=== PATIENT | male | born 1970 | race Caucasian/White ===

== ENCOUNTER 2022-10-24 01:01 | Inpatient (IN) | payer MEDICAID, OTHER ==
[~2022-10-24] VITALS: Ht 182.9 cm; Wt 95.7 kg
[2022-10-24 03:27] LABS: Basophils # (auto) 0 10 ^3/uL (0-0.2); Basophils % (auto) 0.6 % (0.0-2.0); Eosinophils # (auto) 0.1 10 ^3/uL (0-0.8); Eosinophils % (auto) 2.2 % (0.0-7.0); Hematocrit 43.2 % (41.0-53.0); Hemoglobin 14.3 g/dL (13.5-17.5); Lymphocytes # (auto) 1.3 10 ^3/uL (0.4-5.4); Lymphocytes % (auto) 20.6 % (10.0-50.0); Mean Corpuscular Hgb Conc. 33.2 g/dL (32.0-36.0); Mean Corpuscular Volume 90.4 fL (80.0-100.0); Monocytes # (auto) 0.6 10 ^3/uL (0-1.3); Monocytes % (auto) 9.5 % (0.0-12.0); Neutrophils # (auto) 4.1 10 ^3/uL (1.6-8.6); Neutrophils % (auto) 67.1 % (37.0-80.0); Nucleated Red Blood Cells % 0.1 %; Red Blood Cells 4.78 10^6/uL (4.5-5.90); White Blood Cell 6.1 10^3/uL (4.4-10.8)
[2022-10-24 03:38] LABS: Albumin 2.6 g/dL (3.4-5.0); Calcium 7.9 mg/dL (8.5-10.1); Potassium 4.3 mmol/L (3.5-5.1)
[2022-10-24 03:45] LABS: BUN/Creatinine Ratio 16.7; Bilirubin, Total 0.6 mg/dL (0.2-1.0); CRP High Sensitivity 1.18 mg/dL (< 0.3); Total Protein 6.1 g/dL (6.4-8.2)
[2022-10-24] MEDS ORDERED: VANCOMYCIN 1GM/250ML 250 ML IV ONE ×2 (06:30→11:45)
[2022-10-24] MEDS ORDERED: PIPERACILLIN-TAZOB 3.375GM 100 ML IV ONE (06:30)
[2022-10-24] MEDS ORDERED: MORPHINE SULFATE INJ 2 MG/ml SYRG IV PRN (11:30)
[2022-10-24] MEDS ORDERED: FUROSEMIDE 40 MG/4 ML VIAL IV ONE (11:30)
[2022-10-24] MEDS ORDERED: ONDANSETRON HCL 4 MG/2 ML VIAL IV PRN (11:30)
[2022-10-24] MEDS ORDERED: VANCOMYCIN PER PHARMACY 0 MG IV SCH (11:30)
[2022-10-24] MEDS ORDERED: DOCUSATE SOD 100 MG CAP PO PRN (11:30)
[2022-10-24] MEDS: PIPERACILLIN-TAZOB 3.375GM 100 ML IV SCH ×2 (18:28→18:29)
[2022-10-24] MEDS: VANCOMYCIN 1GM/250ML 250 ML IV SCH (21:18)
[2022-10-25] MEDS: PIPERACILLIN-TAZOB 3.375GM 100 ML IV SCH ×4 (01:45→12:00)
[2022-10-25 06:24] LABS: Basophils # (auto) 0.1 10 ^3/uL (0-0.2); Basophils % (auto) 1.4 % (0.0-2.0); Eosinophils # (auto) 0.1 10 ^3/uL (0-0.8); Eosinophils % (auto) 1.2 % (0.0-7.0); Hematocrit 40.1 % (41.0-53.0); Hemoglobin 13.1 g/dL (13.5-17.5); Lymphocytes % (auto) 17.5 % (10.0-50.0); Mean Corpuscular Hemoglobin 29.6 pg (28.0-32.0); Mean Corpuscular Hgb Conc. 32.6 g/dL (32.0-36.0); Monocytes # (auto) 0.6 10 ^3/uL (0-1.3); Monocytes % (auto) 10.1 % (0.0-12.0); Neutrophils % (auto) 69.8 % (37.0-80.0); Nucleated Red Blood Cells % 0.1 %; Red Blood Cells 4.41 10^6/uL (4.5-5.90); Red Cell Distribution Width 15.2 % (11.8-14.3); White Blood Cell 5.7 10^3/uL (4.4-10.8)
[2022-10-25] MEDS: VANCOMYCIN 1GM/250ML 250 ML IV SCH ×2 (06:39→18:00)
[2022-10-25 07:03] LABS: Albumin 2.3 g/dL (3.4-5.0); BUN/Creatinine Ratio 15.9; Calcium 7.7 mg/dL (8.5-10.1); Total Protein 5.5 g/dL (6.4-8.2)
[2022-10-25] MEDS: LISINOPRIL 5 MG TAB PO SCH (10:25)
[2022-10-25] MEDS: FUROSEMIDE 40 MG/4 ML VIAL IV SCH (10:25)
[2022-10-25] MEDS: ASPirin 81 mg TAB PO SCH (10:25)
[2022-10-25] MEDS: ENOXAPARIN SOD 40 MG/0.4 ML SYRINGE SC SCH (10:26)
[2022-10-25] MEDS: PANTOPRAZOLE 40 MG/10 ML VIAL INJ IV SCH (10:26)
[2022-10-25 20:01] VITALS: BP 116/69
[2022-10-25 22:00] VITALS: BP 116/81
[2022-10-26] MEDS: VANCOMYCIN 1GM/250ML 250 ML IV SCH ×2 (04:47→18:46)
[2022-10-26 05:00] VITALS: BP 122/70
[2022-10-26] MEDS: PIPERACILLIN-TAZOB 3.375GM 100 ML IV SCH ×4 (05:18→18:00)
[2022-10-26 09:00] VITALS: BP 127/76
[2022-10-26] MEDS: FUROSEMIDE 40 MG/4 ML VIAL IV SCH (09:52)
[2022-10-26] MEDS: LISINOPRIL 5 MG TAB PO SCH (09:53)
[2022-10-26] MEDS: ASPirin 81 mg TAB PO SCH (09:53)
[2022-10-26] MEDS: PANTOPRAZOLE 40 MG/10 ML VIAL INJ IV SCH (09:53)
[2022-10-26] MEDS: ENOXAPARIN SOD 40 MG/0.4 ML SYRINGE SC SCH (09:54)
[2022-10-26 13:00] VITALS: BP 110/74
[2022-10-26 17:00] VITALS: BP 111/69
[2022-10-26 22:00] VITALS: BP 111/78
[2022-10-27] MEDS: PIPERACILLIN-TAZOB 3.375GM 100 ML IV SCH ×2 (03:36)
[2022-10-27] MEDS: VANCOMYCIN 1GM/250ML 250 ML IV SCH (04:56)
[2022-10-27 05:00] VITALS: BP 134/86
[2022-10-27 09:00] VITALS: BP 104/64
[2022-10-27] MEDS: ASPirin 81 mg TAB PO SCH (09:59)
[2022-10-27] MEDS: PANTOPRAZOLE 40 MG/10 ML VIAL INJ IV SCH (09:59)
[2022-10-27] MEDS: ENOXAPARIN SOD 40 MG/0.4 ML SYRINGE SC SCH (10:00)
[2022-10-27] MEDS: LISINOPRIL 5 MG TAB PO SCH (10:09)
[2022-10-27] MEDS: FUROSEMIDE 40 MG/4 ML VIAL IV SCH (10:10)
[2022-10-27 13:00] VITALS: BP 107/63
[2022-10-27] MEDS ORDERED: CARVEDILOL 3.125 MG TAB PO ONE (14:15)
[2022-10-27 17:00] VITALS: BP 107/70
[2022-10-27] MEDS ORDERED: AMOXICILLIN/CLAVUL 875 MG TAB PO SCH (18:00)
[2022-10-27] MEDS: CARVEDILOL 3.125 MG TAB PO SCH (21:45)
[2022-10-27 22:00] VITALS: BP 99/53
[2022-10-28 05:00] VITALS: BP 116/78
[2022-10-28] MEDS ORDERED: VANCOMYCIN 1GM/250ML 250 ML IV SCH (06:00)
[2022-10-28 08:44] LABS: Basophils # (auto) 0 10 ^3/uL (0-0.2); Basophils % (auto) 0.3 % (0.0-2.0); Eosinophils # (auto) 0.2 10 ^3/uL (0-0.8); Eosinophils % (auto) 2.8 % (0.0-7.0); Hematocrit 42.5 % (41.0-53.0); Lymphocytes % (auto) 18.9 % (10.0-50.0); Mean Corpuscular Hemoglobin 29.7 pg (28.0-32.0); Monocytes # (auto) 0.4 10 ^3/uL (0-1.3); Monocytes % (auto) 7.3 % (0.0-12.0); Neutrophils # (auto) 3.8 10 ^3/uL (1.6-8.6); Neutrophils % (auto) 70.7 % (37.0-80.0); Nucleated Red Blood Cells % 0.1 %; Red Blood Cells 4.72 10^6/uL (4.5-5.90); Red Cell Distribution Width 15.3 % (11.8-14.3); White Blood Cell 5.4 10^3/uL (4.4-10.8)
[2022-10-28 08:45] VITALS: BP 97/57
[2022-10-28 09:01] LABS: Albumin 2.3 g/dL (3.4-5.0); Calcium 7.9 mg/dL (8.5-10.1); Potassium 4.5 mmol/L (3.5-5.1)
[2022-10-28 09:07] LABS: BUN/Creatinine Ratio 16.1; Bilirubin, Total 0.8 mg/dL (0.2-1.0); Total Protein 5.4 g/dL (6.4-8.2)
[2022-10-28] MEDS ORDERED: FUROSEMIDE 40 MG TAB PO SCH (10:00)
[2022-10-28] MEDS: LISINOPRIL 5 MG TAB PO SCH (10:00)
[2022-10-28] MEDS: ENOXAPARIN SOD 40 MG/0.4 ML SYRINGE SC SCH (10:23)
[2022-10-28] MEDS: ASPirin 81 mg TAB PO SCH (10:23)
[2022-10-28] MEDS: CARVEDILOL 3.125 MG TAB PO SCH ×2 (10:25→22:19)
[2022-10-28] MEDS: levoFLOXacin 750MG 150 ML IV SCH (10:27)
[2022-10-28 13:00] VITALS: BP 111/70
[2022-10-28] MEDS ORDERED: DEXTROSE (50%) 50ML SYRG IV PRN (13:00)
[2022-10-28 16:35] LABS: Urine WBC None Seen /hpf (0 - 3)
[2022-10-28 16:49] LABS: Urine Bacteria NONE SEEN /hpf (None Seen); Urine Blood Negative /uL (Negative); Urine Specific Gravity 1.008 (1.001-1.035)
[2022-10-28 16:59] LABS: Alcohol, Urine < 3.0 mg/dL (0-10); Amphetamine Screen, Urine NEGATIVE (NEGATIVE); Barbiturate Scree,Urine NEGATIVE (NEGATIVE); Benzodiazephine Screen, Urine NEGATIVE (NEGATIVE); Cannabinoid Screen, Urine NEGATIVE (NEGATIVE); Cocaine Screen, Urine NEGATIVE (NEGATIVE); Opiate Scree,Urine NEGATIVE (NEGATIVE); Phencyclidine Screen, Urine NEGATIVE (NEGATIVE)
[2022-10-28 17:00] VITALS: BP 95/57
[2022-10-28] MEDS: InsuLIN REG 1unit/0.01ml Soln (100units/ml) SC SCH ×2 (17:00→22:00)
[2022-10-28] MEDS: ACCU-CHEK COMFORT CURVE STRIP VI SCH ×2 (17:00→22:12)
[2022-10-28] MEDS: FUROSEMIDE 20 MG/2 ML VIAL IV SCH (18:00)
[2022-10-28] MEDS: AMOXICILLIN/CLAVUL 875 MG TAB PO SCH (18:57)
[2022-10-28 22:00] VITALS: BP 106/63
[2022-10-28] MEDS: DOBUTamine 1000MCG/ML 250 ML IV SCH (22:16)
[2022-10-29] MEDS: DOBUTamine 1000MCG/ML 250 ML IV SCH (04:11)
[2022-10-29 05:00] VITALS: BP 106/60
[2022-10-29] MEDS: FUROSEMIDE 20 MG/2 ML VIAL IV SCH ×2 (06:00→18:00)
[2022-10-29] MEDS: AMOXICILLIN/CLAVUL 875 MG TAB PO SCH ×2 (06:07→18:58)
[2022-10-29] MEDS: ACCU-CHEK COMFORT CURVE STRIP VI SCH ×3 (06:08→18:21)
[2022-10-29] MEDS: InsuLIN REG 1unit/0.01ml Soln (100units/ml) SC SCH ×4 (06:14→22:00)
[2022-10-29 06:44] LABS: BUN/Creatinine Ratio 21.7; Calcium 8.3 mg/dL (8.5-10.1); Potassium 4.2 mmol/L (3.5-5.1)
[2022-10-29 08:12] LABS: INR 1.18 (0.9-1.15); Partial Thromboplastin Time 28.9 sec (24.6-33.4)
[2022-10-29 09:00] VITALS: BP 104/67
[2022-10-29] MEDS: CARVEDILOL 3.125 MG TAB PO SCH ×2 (10:24→22:00)
[2022-10-29] MEDS: levoFLOXacin 750MG 150 ML IV SCH (11:14)
[2022-10-29] MEDS: LISINOPRIL 5 MG TAB PO SCH (12:25)
[2022-10-29 12:48] VITALS: BP 107/70
[2022-10-29 17:04] VITALS: BP 108/68
[2022-10-29 20:00] VITALS: BP 104/61
[2022-10-29 22:00] VITALS: BP 104/61
[2022-10-30] MEDS: ACCU-CHEK COMFORT CURVE STRIP VI SCH ×4 (01:34→21:39)
[2022-10-30 05:00] VITALS: BP 111/70
[2022-10-30] MEDS: InsuLIN REG 1unit/0.01ml Soln (100units/ml) SC SCH ×3 (06:37→22:00)
[2022-10-30] MEDS: FUROSEMIDE 20 MG/2 ML VIAL IV SCH ×3 (06:55→16:46)
[2022-10-30] MEDS: EMPAGLIFLOZIN 10 MG TAB PO SCH (06:55)
[2022-10-30] MEDS: AMOXICILLIN/CLAVUL 875 MG TAB PO SCH ×2 (06:55→18:03)
[2022-10-30] MEDS: CARVEDILOL 3.125 MG TAB PO SCH ×2 (10:00→21:40)
[2022-10-30] MEDS: LISINOPRIL 5 MG TAB PO SCH (10:00)
[2022-10-30 10:41] LABS: Albumin 2.8 g/dL (3.4-5.0); Calcium 8.4 mg/dL (8.5-10.1); Potassium 4.3 mmol/L (3.5-5.1)
[2022-10-30 10:46] LABS: BUN/Creatinine Ratio 20.2; Bilirubin, Total 0.6 mg/dL (0.2-1.0)
[2022-10-30 10:53] LABS: Basophils # (auto) 0.1 10 ^3/uL (0-0.2); Basophils % (auto) 1.4 % (0.0-2.0); Eosinophils # (auto) 0.2 10 ^3/uL (0-0.8); Eosinophils % (auto) 2.7 % (0.0-7.0); Hemoglobin 15.3 g/dL (13.5-17.5); Lymphocytes # (auto) 1.2 10 ^3/uL (0.4-5.4); Mean Corpuscular Hemoglobin 29.6 pg (28.0-32.0); Mean Corpuscular Hgb Conc. 33.2 g/dL (32.0-36.0); Mean Corpuscular Volume 89.1 fL (80.0-100.0); Monocytes # (auto) 0.5 10 ^3/uL (0-1.3); Monocytes % (auto) 8.3 % (0.0-12.0); Neutrophils % (auto) 67.6 % (37.0-80.0); Nucleated Red Blood Cells % 0.3 %; Red Blood Cells 5.16 10^6/uL (4.5-5.90); Red Cell Distribution Width 15.3 % (11.8-14.3)
[2022-10-30] MEDS: levoFLOXacin 750MG 150 ML IV SCH (10:56)
[2022-10-30] MEDS: ENOXAPARIN SOD 40 MG/0.4 ML SYRINGE SC SCH (10:57)
[2022-10-30 13:00] VITALS: BP 107/69
[2022-10-30 17:00] VITALS: BP 126/88
[2022-10-30] MEDS: Juven Orange Powder PACKET 27.5gm PO SCH (18:04)
[2022-10-30 22:00] VITALS: BP 107/69
[2022-10-31 05:00] VITALS: BP 104/65
[2022-10-31] MEDS: FUROSEMIDE 20 MG/2 ML VIAL IV SCH (06:00)
[2022-10-31] MEDS: AMOXICILLIN/CLAVUL 875 MG TAB PO SCH (06:59)
[2022-10-31] MEDS: EMPAGLIFLOZIN 10 MG TAB PO SCH (06:59)
[2022-10-31] MEDS: ACCU-CHEK COMFORT CURVE STRIP VI SCH ×2 (07:00→11:39)
[2022-10-31] MEDS: InsuLIN REG 1unit/0.01ml Soln (100units/ml) SC SCH ×2 (07:00→11:30)
[2022-10-31] MEDS: Juven Orange Powder PACKET 27.5gm PO SCH (08:10)
[2022-10-31 09:00] VITALS: BP 104/66
[2022-10-31] MEDS: CARVEDILOL 3.125 MG TAB PO SCH (10:00)
[2022-10-31] MEDS ORDERED: levoFLOXacin 250 MG TAB PO SCH (10:00)
[2022-10-31] MEDS: LISINOPRIL 5 MG TAB PO SCH (10:00)
[2022-10-31] MEDS: ENOXAPARIN SOD 40 MG/0.4 ML SYRINGE SC SCH (10:14)
[2022-10-31 10:47] LABS: Basophils # (auto) 0.1 10 ^3/uL (0-0.2); Basophils % (auto) 0.9 % (0.0-2.0); Eosinophils # (auto) 0.2 10 ^3/uL (0-0.8); Eosinophils % (auto) 2.5 % (0.0-7.0); Hematocrit 47.5 % (41.0-53.0); Hemoglobin 15.7 g/dL (13.5-17.5); Lymphocytes # (auto) 1.3 10 ^3/uL (0.4-5.4); Lymphocytes % (auto) 21.4 % (10.0-50.0); Mean Corpuscular Hemoglobin 29.9 pg (28.0-32.0); Mean Corpuscular Hgb Conc. 33.1 g/dL (32.0-36.0); Mean Corpuscular Volume 90.3 fL (80.0-100.0); Monocytes # (auto) 0.5 10 ^3/uL (0-1.3); Monocytes % (auto) 8.6 % (0.0-12.0); Neutrophils # (auto) 4.2 10 ^3/uL (1.6-8.6); Neutrophils % (auto) 66.6 % (37.0-80.0); Nucleated Red Blood Cells % 0.1 %; Red Blood Cells 5.25 10^6/uL (4.5-5.90); Red Cell Distribution Width 15.1 % (11.8-14.3); White Blood Cell 6.3 10^3/uL (4.4-10.8)
[2022-10-31 11:03] LABS: Albumin 2.9 g/dL (3.4-5.0); Calcium 8.7 mg/dL (8.5-10.1); Potassium 4.1 mmol/L (3.5-5.1)
[2022-10-31 11:07] LABS: Bilirubin, Total 0.5 mg/dL (0.2-1.0); Total Protein 7.2 g/dL (6.4-8.2)
[2022-10-31 13:00] VITALS: BP 102/66
[2022-10-31] MEDS ORDERED: EMPA1TAB PO (13:25)
[2022-10-31] MEDS ORDERED: FURO1TAB33 GT (13:25)
[2022-10-31] MEDS ORDERED: LISI-275 PO (13:25)
[2022-10-31] MEDS ORDERED: CAR3125T PO (13:25)
[2022-10-31 14:20] VITALS: BP 126/61
== END 2022-10-31 16:20 | disposition home or self-care (01) | DRG 383 ==
LOC: ER 01:01 → OVERFLOW 11:23 → WEST WING 10-25 19:27 → TELE-WESTW 10-28 14:28
PROVIDERS: ADMIT Nurse Practitioner Family; ATTEND Student in an Organized Health Care Education/Training Program
DX: L03.116 Cellulitis of left lower limb (principal); I31.39 Other pericardial effusion (noninflammatory); I50.43 Acute on chronic combined systolic (congestive) and diastolic (congestive) heart failure; E44.1 Mild protein-calorie malnutrition; I42.7 Cardiomyopathy due to drug and external agent; E11.22 Type 2 diabetes mellitus with diabetic chronic kidney disease; E11.622 Type 2 diabetes mellitus with other skin ulcer; L97.919 Non-pressure chronic ulcer of unspecified part of right lower leg with unspecified severity; Z20.822 Contact with and (suspected) exposure to COVID-19; F15.10 Other stimulant abuse, uncomplicated; F17.210 Nicotine dependence, cigarettes, uncomplicated; F32.A Depression, unspecified; L03.115 Cellulitis of right lower limb; L97.929 Non-pressure chronic ulcer of unspecified part of left lower leg with unspecified severity; E66.9 Obesity, unspecified; N18.31 Chronic kidney disease, stage 3a; Z68.36 Body mass index [BMI] 36.0-36.9, adult; Z79.899 Other long term (current) drug therapy; Z91.14 Patient's other noncompliance with medication regimen; I87.8 Other specified disorders of veins
CPT/HCPCS: 36415; 71045; 73590; 76604; 76705; 80048; 80053; 80061; 80202; 80307; 81001; 82565; 82962; 83036; 83880; 84443; 84484; 85025; 85610; 85652; 85730; 86141; 87040; 87077; 87186; 87205; 87426; 93306; 93970; 96365; 96366; 96368; 96375; 97163; C9113; G0378; J1956; J2543

== ENCOUNTER 2022-11-11 09:01 | Inpatient (IN) | payer MEDICAID, OTHER ==
[~2022-11-11] VITALS: Ht 172.7 cm; Wt 89.3 kg
[~2022-11-11 09:01] MED LIST: CAR3125T PO; EMPA1TAB PO; FURO1TAB33 GT; LISI-275 PO
[2022-11-11 09:29] LABS: Basophils # (auto) 0.1 10 ^3/uL (0-0.2); Eosinophils # (auto) 0.1 10 ^3/uL (0-0.8); Eosinophils % (auto) 1.1 % (0.0-7.0); Hematocrit 41.3 % (41.0-53.0); Hemoglobin 13.7 g/dL (13.5-17.5); Lymphocytes # (auto) 1.4 10 ^3/uL (0.4-5.4); Lymphocytes % (auto) 19.2 % (10.0-50.0); Mean Corpuscular Hemoglobin 29.7 pg (28.0-32.0); Mean Corpuscular Hgb Conc. 33.2 g/dL (32.0-36.0); Mean Corpuscular Volume 89.4 fL (80.0-100.0); Monocytes # (auto) 0.6 10 ^3/uL (0-1.3); Monocytes % (auto) 8.7 % (0.0-12.0); Nucleated Red Blood Cells % 0.2 %; Red Blood Cells 4.62 10^6/uL (4.5-5.90); Red Cell Distribution Width 15.1 % (11.8-14.3); White Blood Cell 7.2 10^3/uL (4.4-10.8)
[2022-11-11] MEDS ORDERED: SODIUM CHLORIDE 0.9% 1,000 ML IV ONE (09:30)
[2022-11-11 09:40] LABS: Potassium 3.9 mmol/L (3.5-5.1)
[2022-11-11] MEDS ORDERED: ASPirin 325 MG TAB PO ONE (09:45)
[2022-11-11] MEDS ORDERED: FUROSEMIDE 40 MG/4 ML VIAL IV ONE (09:45)
[2022-11-11 09:52] LABS: INR 1.13 (0.9-1.15); Partial Thromboplastin Time 28.4 sec (24.6-33.4)
[2022-11-11 09:56] LABS: Albumin 3.1 g/dL (3.4-5.0); BUN/Creatinine Ratio 14.2; Bilirubin, Total 0.5 mg/dL (0.2-1.0); Calcium 8.4 mg/dL (8.5-10.1); Total Protein 6.7 g/dL (6.4-8.2)
[2022-11-11] MEDS ORDERED: ENOXAPARIN SOD 100 MG/1 ML SYRINGE SC ONE (13:15)
[2022-11-11] MEDS ORDERED: NITROGLYCERIN 0.4 MG SL TAB SL PRN (15:00)
[2022-11-11] MEDS ORDERED: MORPHINE SULFATE INJ 2 MG/ml SYRG IV PRN (15:00)
[2022-11-11] MEDS ORDERED: SODIUM CHLORIDE 0.9% 1,000 ML IV SCH (15:15)
[2022-11-11] MEDS ORDERED: DEXTROSE (50%) 50ML SYRG IV PRN (15:15)
[2022-11-11] MEDS ORDERED: FUROSEMIDE 20 MG/2 ML VIAL IV ONE (15:15)
[2022-11-11] MEDS: InsuLIN REG 1unit/0.01ml Soln (100units/ml) SC SCH ×2 (17:30→21:43)
[2022-11-11] MEDS: ACCU-CHEK COMFORT CURVE STRIP VI SCH ×2 (17:30→21:31)
[2022-11-11 20:17] LABS: Urine Bacteria NONE SEEN /hpf (None Seen); Urine Blood Negative /uL (Negative); Urine WBC <1 /hpf (0 - 3)
[2022-11-11] MEDS: CARVEDILOL 3.125 MG TAB PO SCH (21:33)
[2022-11-12 06:26] LABS: Basophils # (auto) 0.1 10 ^3/uL (0-0.2); Basophils % (auto) 1.2 % (0.0-2.0); Eosinophils # (auto) 0.2 10 ^3/uL (0-0.8); Hematocrit 41.5 % (41.0-53.0); Hemoglobin 13.7 g/dL (13.5-17.5); Lymphocytes # (auto) 1.5 10 ^3/uL (0.4-5.4); Lymphocytes % (auto) 24.3 % (10.0-50.0); Mean Corpuscular Hemoglobin 29.5 pg (28.0-32.0); Mean Corpuscular Volume 89.3 fL (80.0-100.0); Monocytes # (auto) 0.4 10 ^3/uL (0-1.3); Monocytes % (auto) 6.2 % (0.0-12.0); Neutrophils % (auto) 64.3 % (37.0-80.0); Nucleated Red Blood Cells % 0.1 %; Red Blood Cells 4.65 10^6/uL (4.5-5.90); Red Cell Distribution Width 15.6 % (11.8-14.3); White Blood Cell 6.2 10^3/uL (4.4-10.8)
[2022-11-12 06:32] LABS: Potassium 4.3 mmol/L (3.5-5.1)
[2022-11-12 06:38] LABS: Albumin 2.6 g/dL (3.4-5.0); BUN/Creatinine Ratio 14.3; Bilirubin, Total 0.7 mg/dL (0.2-1.0); Calcium 8.5 mg/dL (8.5-10.1); Total Protein 6.3 g/dL (6.4-8.2)
[2022-11-12] MEDS: InsuLIN REG 1unit/0.01ml Soln (100units/ml) SC SCH ×4 (07:00→22:00)
[2022-11-12] MEDS: ACCU-CHEK COMFORT CURVE STRIP VI SCH ×4 (07:27→22:40)
[2022-11-12] MEDS: FUROSEMIDE 20 MG/2 ML VIAL IV SCH (09:41)
[2022-11-12] MEDS: CARVEDILOL 3.125 MG TAB PO SCH ×2 (09:42→22:00)
[2022-11-12] MEDS: LISINOPRIL 5 MG TAB PO SCH (09:43)
[2022-11-12] MEDS: NICOTINE 7MG/24HR TOPICAL PATCH TD SCH (09:43)
[2022-11-12] MEDS: ENOXAPARIN SOD 40 MG/0.4 ML SYRINGE SC SCH (09:43)
[2022-11-12 13:10] VITALS: BP 100/61
[2022-11-12 17:27] VITALS: BP 104/68
[2022-11-12 22:00] VITALS: BP 96/67
[2022-11-13 05:00] VITALS: BP 108/72
[2022-11-13] MEDS: ACCU-CHEK COMFORT CURVE STRIP VI SCH ×4 (06:15→22:09)
[2022-11-13] MEDS: InsuLIN REG 1unit/0.01ml Soln (100units/ml) SC SCH ×4 (06:16→22:00)
[2022-11-13 08:00] VITALS: BP 96/67
[2022-11-13 09:00] VITALS: BP 107/76
[2022-11-13] MEDS: LISINOPRIL 5 MG TAB PO SCH (10:00)
[2022-11-13] MEDS: CARVEDILOL 3.125 MG TAB PO SCH ×2 (10:00→22:08)
[2022-11-13] MEDS: FUROSEMIDE 20 MG/2 ML VIAL IV SCH (10:33)
[2022-11-13] MEDS: ENOXAPARIN SOD 40 MG/0.4 ML SYRINGE SC SCH (10:35)
[2022-11-13] MEDS: NICOTINE 7MG/24HR TOPICAL PATCH TD SCH (10:35)
[2022-11-13 13:00] VITALS: BP 114/79
[2022-11-13 17:00] VITALS: BP 107/68
[2022-11-13 22:00] VITALS: BP 107/68
[2022-11-13] MEDS: BACITRACIN TOP OINT 1 UD PKG TOP SCH (22:10)
[2022-11-14 04:56] VITALS: BP 104/75
[2022-11-14] MEDS: InsuLIN REG 1unit/0.01ml Soln (100units/ml) SC SCH ×4 (06:38→22:00)
[2022-11-14] MEDS: ACCU-CHEK COMFORT CURVE STRIP VI SCH ×4 (06:38→22:47)
[2022-11-14 09:00] VITALS: BP 118/83
[2022-11-14] MEDS: FUROSEMIDE 20 MG/2 ML VIAL IV SCH (09:54)
[2022-11-14] MEDS: ENOXAPARIN SOD 40 MG/0.4 ML SYRINGE SC SCH (09:55)
[2022-11-14] MEDS: NICOTINE 7MG/24HR TOPICAL PATCH TD SCH (09:56)
[2022-11-14] MEDS: BACITRACIN TOP OINT 1 UD PKG TOP SCH ×2 (09:56→22:46)
[2022-11-14] MEDS: CARVEDILOL 3.125 MG TAB PO SCH ×2 (09:57→22:00)
[2022-11-14] MEDS: LISINOPRIL 5 MG TAB PO SCH (09:57)
[2022-11-14 13:00] VITALS: BP 109/75
[2022-11-14 16:40] VITALS: BP 121/84
[2022-11-14] MEDS: Juven Fruit Punch Powder PACKET 28.8gm PO SCH (18:12)
[2022-11-14 20:00] VITALS: BP 99/55
[2022-11-15 05:00] VITALS: BP 128/87
[2022-11-15] MEDS: InsuLIN REG 1unit/0.01ml Soln (100units/ml) SC SCH ×5 (06:20→22:00)
[2022-11-15] MEDS: ACCU-CHEK COMFORT CURVE STRIP VI SCH ×4 (06:20→22:12)
[2022-11-15 09:00] VITALS: BP_SYST 110; BP_SYST 125; BP_DIAS 69; BP_DIAS 74
[2022-11-15] MEDS: NICOTINE 7MG/24HR TOPICAL PATCH TD SCH (10:00)
[2022-11-15 10:17] LABS: Basophils # (auto) 0.1 10 ^3/uL (0-0.2); Basophils % (auto) 0.9 % (0.0-2.0); Eosinophils # (auto) 0.2 10 ^3/uL (0-0.8); Eosinophils % (auto) 3.6 % (0.0-7.0); Hematocrit 41.5 % (41.0-53.0); Hemoglobin 14.1 g/dL (13.5-17.5); Lymphocytes # (auto) 1.4 10 ^3/uL (0.4-5.4); Lymphocytes % (auto) 24.6 % (10.0-50.0); Mean Corpuscular Hemoglobin 30.2 pg (28.0-32.0); Mean Corpuscular Hgb Conc. 34.1 g/dL (32.0-36.0); Mean Corpuscular Volume 88.6 fL (80.0-100.0); Monocytes # (auto) 0.3 10 ^3/uL (0-1.3); Monocytes % (auto) 5.6 % (0.0-12.0); Neutrophils # (auto) 3.8 10 ^3/uL (1.6-8.6); Neutrophils % (auto) 65.3 % (37.0-80.0); Nucleated Red Blood Cells % 0.2 %; Red Blood Cells 4.68 10^6/uL (4.5-5.90); Red Cell Distribution Width 15.5 % (11.8-14.3); White Blood Cell 5.8 10^3/uL (4.4-10.8)
[2022-11-15] MEDS: ENOXAPARIN SOD 40 MG/0.4 ML SYRINGE SC SCH (10:17)
[2022-11-15] MEDS: Juven Fruit Punch Powder PACKET 28.8gm PO SCH ×2 (10:18→18:08)
[2022-11-15] MEDS: FUROSEMIDE 20 MG/2 ML VIAL IV SCH (10:20)
[2022-11-15] MEDS: BACITRACIN TOP OINT 1 UD PKG TOP SCH ×2 (10:20→22:00)
[2022-11-15] MEDS: CARVEDILOL 3.125 MG TAB PO SCH ×2 (10:20→22:00)
[2022-11-15] MEDS: LISINOPRIL 5 MG TAB PO SCH (10:21)
[2022-11-15 10:36] LABS: BUN/Creatinine Ratio 27.1; Magnesium 2.3 mg/dL (1.6-2.6); Potassium 4.5 mmol/L (3.5-5.1)
[2022-11-15 13:00] VITALS: BP 104/66
[2022-11-15 17:00] VITALS: BP 103/59
[2022-11-15 22:00] VITALS: BP 108/71
[2022-11-16 05:00] VITALS: BP 142/75
[2022-11-16] MEDS: ACCU-CHEK COMFORT CURVE STRIP VI SCH ×4 (06:10→22:10)
[2022-11-16] MEDS: InsuLIN REG 1unit/0.01ml Soln (100units/ml) SC SCH ×4 (06:11→22:00)
[2022-11-16 09:00] VITALS: BP 101/70
[2022-11-16] MEDS: NICOTINE 7MG/24HR TOPICAL PATCH TD SCH (10:00)
[2022-11-16] MEDS: CARVEDILOL 3.125 MG TAB PO SCH ×2 (11:07→22:03)
[2022-11-16] MEDS: ENOXAPARIN SOD 40 MG/0.4 ML SYRINGE SC SCH (11:08)
[2022-11-16] MEDS: LISINOPRIL 5 MG TAB PO SCH (11:10)
[2022-11-16] MEDS: BACITRACIN TOP OINT 1 UD PKG TOP SCH ×2 (11:11→22:04)
[2022-11-16] MEDS: FUROSEMIDE 20 MG/2 ML VIAL IV SCH (11:11)
[2022-11-16] MEDS: Juven Fruit Punch Powder PACKET 28.8gm PO SCH ×2 (11:13→18:57)
[2022-11-16 13:00] VITALS: BP 103/74
[2022-11-16 17:00] VITALS: BP 100/64
[2022-11-16 22:00] VITALS: BP 106/72
[2022-11-17 05:00] VITALS: BP 117/69
[2022-11-17] MEDS: ACCU-CHEK COMFORT CURVE STRIP VI SCH ×4 (06:15→22:51)
[2022-11-17] MEDS: InsuLIN REG 1unit/0.01ml Soln (100units/ml) SC SCH ×4 (06:15→22:54)
[2022-11-17 09:23] VITALS: BP 120/76
[2022-11-17] MEDS: NICOTINE 7MG/24HR TOPICAL PATCH TD SCH (10:00)
[2022-11-17] MEDS: ENOXAPARIN SOD 40 MG/0.4 ML SYRINGE SC SCH (10:03)
[2022-11-17] MEDS: BACITRACIN TOP OINT 1 UD PKG TOP SCH ×2 (10:04→22:51)
[2022-11-17] MEDS: FUROSEMIDE 20 MG/2 ML VIAL IV SCH (10:05)
[2022-11-17] MEDS: CARVEDILOL 3.125 MG TAB PO SCH ×2 (10:05→22:50)
[2022-11-17] MEDS: LISINOPRIL 5 MG TAB PO SCH (10:08)
[2022-11-17] MEDS: Juven Fruit Punch Powder PACKET 28.8gm PO SCH ×2 (10:08→18:12)
[2022-11-17] MEDS ORDERED: LISI-275 PO ×3 (11:11→12:16)
[2022-11-17] MEDS ORDERED: FURO1TAB33 GT ×2 (11:11)
[2022-11-17] MEDS ORDERED: CAR3125T PO ×3 (11:11→12:16)
[2022-11-17] MEDS ORDERED: EMPA1TAB PO ×2 (11:11)
[2022-11-17] MEDS ORDERED: FURO1TAB31 PO (12:16)
[2022-11-17] MEDS ORDERED: GLIM4TAB PO (12:17)
[2022-11-17 12:40] VITALS: BP 92/56
[2022-11-17 13:18] VITALS: BP 120/76
[2022-11-17 16:40] VITALS: BP 99/58
[2022-11-17 22:00] VITALS: BP_SYST 115; BP_SYST 97; BP_DIAS 55; BP_DIAS 75
[2022-11-18 05:00] VITALS: BP 117/76
[2022-11-18] MEDS: InsuLIN REG 1unit/0.01ml Soln (100units/ml) SC SCH ×2 (06:02→11:32)
[2022-11-18] MEDS: ACCU-CHEK COMFORT CURVE STRIP VI SCH ×2 (06:02→11:30)
[2022-11-18 09:07] VITALS: BP 104/71
[2022-11-18] MEDS: NICOTINE 7MG/24HR TOPICAL PATCH TD SCH (10:00)
[2022-11-18] MEDS: ENOXAPARIN SOD 40 MG/0.4 ML SYRINGE SC SCH (10:57)
[2022-11-18] MEDS: CARVEDILOL 3.125 MG TAB PO SCH (10:58)
[2022-11-18] MEDS: LISINOPRIL 5 MG TAB PO SCH (10:59)
[2022-11-18] MEDS: FUROSEMIDE 20 MG/2 ML VIAL IV SCH (11:01)
[2022-11-18] MEDS: BACITRACIN TOP OINT 1 UD PKG TOP SCH (11:01)
[2022-11-18] MEDS: Juven Fruit Punch Powder PACKET 28.8gm PO SCH (11:02)
[2022-11-18 12:33] VITALS: BP 110/70
== END 2022-11-18 16:00 | disposition home or self-care (01) | DRG 194 ==
LOC: ER 09:01 → TELE 15:06 → TELE-E-ADS 11-12 13:10 → TELE-WESTW 11-12 17:49
PROVIDERS: ADMIT Registered Nurse; ATTEND Internal Medicine
DX: I11.0 Hypertensive heart disease with heart failure (principal); E46 Unspecified protein-calorie malnutrition; I47.20 Ventricular tachycardia, unspecified; I50.23 Acute on chronic systolic (congestive) heart failure; E11.9 Type 2 diabetes mellitus without complications; I87.8 Other specified disorders of veins; F17.210 Nicotine dependence, cigarettes, uncomplicated; Z71.6 Tobacco abuse counseling; Z59.00 Homelessness unspecified; Z68.28 Body mass index [BMI] 28.0-28.9, adult; Z91.018 Allergy to other foods
CPT/HCPCS: 36415; 71045; 71275; 80048; 80053; 81001; 82962; 83735; 83880; 84484; 85025; 85379; 85610; 85730; 87081; 87426; 93005; 93970; 96372; 96374; 99291; G0378; J1815

== ENCOUNTER 2022-11-19 01:30 | Inpatient (IN) | payer OTHER ==
[~2022-11-19] VITALS: Ht 182.9 cm; Wt 86.6 kg
[2022-11-19 01:16] VITALS: BP 97/59
[~2022-11-19 01:30] MED LIST changes: -EMPA1TAB PO; +FURO1TAB31 PO; -FURO1TAB33 GT; +GLIM4TAB PO
[2022-11-19 07:22] LABS: Basophils # (auto) 0.1 10 ^3/uL (0-0.2); Basophils % (auto) 1.3 % (0.0-2.0); Eosinophils # (auto) 0.2 10 ^3/uL (0-0.8); Eosinophils % (auto) 2.6 % (0.0-7.0); Hemoglobin 14.6 g/dL (13.5-17.5); Lymphocytes # (auto) 1.5 10 ^3/uL (0.4-5.4); Lymphocytes % (auto) 18.4 % (10.0-50.0); Mean Corpuscular Hemoglobin 31.1 pg (28.0-32.0); Mean Corpuscular Hgb Conc. 35.6 g/dL (32.0-36.0); Mean Corpuscular Volume 87.5 fL (80.0-100.0); Monocytes # (auto) 0.8 10 ^3/uL (0-1.3); Monocytes % (auto) 9.8 % (0.0-12.0); Neutrophils # (auto) 5.5 10 ^3/uL (1.6-8.6); Neutrophils % (auto) 67.9 % (37.0-80.0); Nucleated Red Blood Cells % 0.2 %; Red Blood Cells 4.68 10^6/uL (4.5-5.90); Red Cell Distribution Width 15.4 % (11.8-14.3); White Blood Cell 8.1 10^3/uL (4.4-10.8)
[2022-11-19 07:42] LABS: Albumin 3.1 g/dL (3.4-5.0); BUN/Creatinine Ratio 36.4; Calcium 8.7 mg/dL (8.5-10.1); Potassium 4.2 mmol/L (3.5-5.1)
[2022-11-19 07:45] LABS: Bilirubin, Total 0.5 mg/dL (0.2-1.0); Total Protein 6.5 g/dL (6.4-8.2)
[2022-11-19] MEDS ORDERED: OXYCODONE W/ ACETAMINOPHEN 5/325MG TABLET PO ONE (10:30)
[2022-11-19 11:40] LABS: Urine Bacteria NONE SEEN /hpf (None Seen); Urine Blood Negative /uL (Negative); Urine Specific Gravity 1.024 (1.001-1.035); Urine WBC <1 /hpf (0 - 3)
[2022-11-19] MEDS ORDERED: DOCUSATE SOD 100 MG CAP PO PRN (12:30)
[2022-11-19] MEDS ORDERED: MORPHINE SULFATE INJ 2 MG/ml SYRG IV PRN (12:30)
[2022-11-19] MEDS ORDERED: ONDANSETRON HCL 4 MG/2 ML VIAL IV PRN (12:30)
[2022-11-19] MEDS ORDERED: ACETAMINOPHEN 325 MG TAB PO PRN (12:30)
[2022-11-19] MEDS: HYDROcodone-ACET 5/325MG TAB PO PRN (20:31)
[2022-11-19] MEDS: FUROSEMIDE 40 MG/4 ML VIAL IV SCH (22:10)
[2022-11-20] MEDS: HYDROcodone-ACET 5/325MG TAB PO PRN ×2 (01:39→09:30)
[2022-11-20 02:00] VITALS: BP 97/59
[2022-11-20 05:00] VITALS: BP 91/53
[2022-11-20 07:18] LABS: Basophils # (auto) 0 10 ^3/uL (0-0.2); Basophils % (auto) 0.7 % (0.0-2.0); Eosinophils # (auto) 0.4 10 ^3/uL (0-0.8); Eosinophils % (auto) 6.7 % (0.0-7.0); Hematocrit 41.5 % (41.0-53.0); Hemoglobin 14.3 g/dL (13.5-17.5); Lymphocytes # (auto) 1.8 10 ^3/uL (0.4-5.4); Lymphocytes % (auto) 34.3 % (10.0-50.0); Mean Corpuscular Hemoglobin 30.3 pg (28.0-32.0); Mean Corpuscular Hgb Conc. 34.5 g/dL (32.0-36.0); Mean Corpuscular Volume 87.9 fL (80.0-100.0); Monocytes # (auto) 0.6 10 ^3/uL (0-1.3); Monocytes % (auto) 10.6 % (0.0-12.0); Neutrophils # (auto) 2.5 10 ^3/uL (1.6-8.6); Neutrophils % (auto) 47.7 % (37.0-80.0); Nucleated Red Blood Cells % 0.2 %; Red Blood Cells 4.72 10^6/uL (4.5-5.90); Red Cell Distribution Width 15.9 % (11.8-14.3); White Blood Cell 5.2 10^3/uL (4.4-10.8)
[2022-11-20 07:41] LABS: Albumin 2.9 g/dL (3.4-5.0); Bilirubin, Total 0.7 mg/dL (0.2-1.0); Calcium 8.2 mg/dL (8.5-10.1); Potassium 4.6 mmol/L (3.5-5.1); Total Protein 6.5 g/dL (6.4-8.2)
[2022-11-20 09:00] VITALS: BP 105/67
[2022-11-20] MEDS: FUROSEMIDE 40 MG/4 ML VIAL IV SCH ×2 (09:29→21:23)
[2022-11-20] MEDS: ENOXAPARIN SOD 40 MG/0.4 ML SYRINGE SC SCH (09:29)
[2022-11-20] MEDS ORDERED: DEXTROSE (50%) 50ML SYRG IV PRN (12:00)
[2022-11-20 14:00] VITALS: BP 111/64
[2022-11-20] MEDS: HYDROcodone-ACET 10/325MG TAB PO PRN ×2 (15:36→21:20)
[2022-11-20 17:00] VITALS: BP 110/60
[2022-11-20] MEDS: InsuLIN REG 1unit/0.01ml Soln (100units/ml) SC SCH ×2 (17:00→21:24)
[2022-11-20] MEDS: ACCU-CHEK COMFORT CURVE STRIP VI SCH ×2 (18:09→21:24)
[2022-11-20 22:00] VITALS: BP 111/63
[2022-11-21 05:00] VITALS: BP 109/63
[2022-11-21] MEDS: HYDROcodone-ACET 10/325MG TAB PO PRN ×3 (05:47→21:35)
[2022-11-21] MEDS: ACCU-CHEK COMFORT CURVE STRIP VI SCH ×4 (06:16→21:34)
[2022-11-21] MEDS: InsuLIN REG 1unit/0.01ml Soln (100units/ml) SC SCH ×4 (06:16→21:34)
[2022-11-21 08:55] VITALS: BP 100/56
[2022-11-21] MEDS: FUROSEMIDE 40 MG/4 ML VIAL IV SCH ×2 (09:49→21:32)
[2022-11-21] MEDS: ENOXAPARIN SOD 40 MG/0.4 ML SYRINGE SC SCH (09:50)
[2022-11-21 13:00] VITALS: BP 111/74
[2022-11-21 16:23] VITALS: BP 111/79
[2022-11-21 20:00] VITALS: BP 110/73
[2022-11-21 22:00] VITALS: BP 110/73
[2022-11-22] VITALS (8 sets, daily range): BP systolic 88–116; BP diastolic 54–78
[2022-11-22] MEDS: InsuLIN REG 1unit/0.01ml Soln (100units/ml) SC SCH ×4 (06:10→22:23)
[2022-11-22] MEDS: ACCU-CHEK COMFORT CURVE STRIP VI SCH ×5 (06:10→22:16)
[2022-11-22] MEDS: HYDROcodone-ACET 10/325MG TAB PO PRN ×3 (06:11→22:23)
[2022-11-22] MEDS: FUROSEMIDE 40 MG/4 ML VIAL IV SCH ×3 (10:46→22:10)
[2022-11-22] MEDS: ENOXAPARIN SOD 40 MG/0.4 ML SYRINGE SC SCH (10:48)
[2022-11-22] MEDS ORDERED: LIDOCAINE VISCOUS 2% 15ML UD ONE (16:10)
[2022-11-23 05:00] VITALS: BP 100/69
[2022-11-23] MEDS: ACCU-CHEK COMFORT CURVE STRIP VI SCH ×4 (06:56→21:46)
[2022-11-23] MEDS: InsuLIN REG 1unit/0.01ml Soln (100units/ml) SC SCH ×4 (06:56→21:50)
[2022-11-23] MEDS: HYDROcodone-ACET 10/325MG TAB PO PRN ×3 (08:36→22:35)
[2022-11-23] MEDS: ENOXAPARIN SOD 40 MG/0.4 ML SYRINGE SC SCH (08:36)
[2022-11-23] MEDS: FUROSEMIDE 40 MG/4 ML VIAL IV SCH ×2 (08:37→22:00)
[2022-11-23 09:06] VITALS: BP 106/64
[2022-11-23 13:05] VITALS: BP 110/68
[2022-11-23 17:10] VITALS: BP 104/68
[2022-11-23 22:00] VITALS: BP 104/77
[2022-11-24 05:00] VITALS: BP 94/61
[2022-11-24] MEDS: ACCU-CHEK COMFORT CURVE STRIP VI SCH ×3 (06:43→17:47)
[2022-11-24] MEDS: InsuLIN REG 1unit/0.01ml Soln (100units/ml) SC SCH ×3 (06:43→17:47)
[2022-11-24 08:00] VITALS: BP 101/64
[2022-11-24] MEDS: FUROSEMIDE 40 MG/4 ML VIAL IV SCH (08:24)
[2022-11-24] MEDS: ENOXAPARIN SOD 40 MG/0.4 ML SYRINGE SC SCH (08:25)
[2022-11-24] MEDS: HYDROcodone-ACET 10/325MG TAB PO PRN ×2 (08:25→15:43)
[2022-11-24 12:00] VITALS: BP 96/58
[2022-11-24 15:27] VITALS: BP 96/58
[2022-11-24 16:00] VITALS: BP 111/73
== END 2022-11-24 19:52 | DRG 347 ==
LOC: ER 01:30 → EDBD 01:30 → OVERFLOW 12:28 → WEST WING 23:34 → TELE-WESTW 11-20 02:41
PROVIDERS: ADMIT Internal Medicine; ATTEND Internal Medicine
DX: S32.10XA Unspecified fracture of sacrum, initial encounter for closed fracture (principal); I50.23 Acute on chronic systolic (congestive) heart failure; I31.39 Other pericardial effusion (noninflammatory); Z20.822 Contact with and (suspected) exposure to COVID-19; E11.9 Type 2 diabetes mellitus without complications; F17.210 Nicotine dependence, cigarettes, uncomplicated; I11.0 Hypertensive heart disease with heart failure; W18.39XA Other fall on same level, initial encounter; Y93.89 Activity, other specified; Z59.00 Homelessness unspecified; Z68.25 Body mass index [BMI] 25.0-25.9, adult; Y92.89 Other specified places as the place of occurrence of the external cause; Y99.8 Other external cause status; Z91.018 Allergy to other foods; Z71.6 Tobacco abuse counseling
CPT/HCPCS: 36415; 71045; 71250; 72131; 72192; 80053; 81001; 82962; 84484; 85025; 87081; 87426; 93005; 93306; 96374; 97110; 97116; 97163; 97530; G0378; J1815; J2405